=== PATIENT | female | born 1965 | race Caucasian/White ===

== ENCOUNTER 2021-12-08 13:23 | Outpatient (REF) | payer MEDICARE, MEDICAID, SELFPAY ==
--- NOTE | ~2021-12-08 | MR_ITS ---
MRI CERVICAL AND THORACIC SPINE WITH AND WITHOUT IV CONTRAST CLINICAL INFORMATION: Multiple sclerosis. COMPARISON: None TECHNIQUE: Multiplanar multisequence MR imaging of the cervical and thoracic spine obtained before and following the administration of 6 mL of Gadavist intravenous contrast without complication. FINDINGS: CERVICAL SPINE MRI: Accounting for artifact, no definite cervical cord lesions are identified. There are no enhancing cervical cord lesions. Partially imaged intracranial compartment is unremarkable. Cervical alignment is maintained. Vertebral body heights are preserved. There is mild disc volume loss at C4-C5 and C6-C7. Modic type I endplate signal changes at C4-C5 and C6-C7. There is no additional bone marrow edema. There are no acute fractures. The cervical arterial flow voids are maintained. There is a nonspecific enhancing lesion involving the anterior half of the T1 spinous process measuring 1.[address] of this area would be helpful in excluding any suspicious features that may warrant follow-up with a bone scan or PET scan. At C3-C4, an annular disc bulge mildly narrows the central canal and uncovertebral joint spurring and facet arthropathy result in mild bilateral foraminal encroachment. At C4-C5, disc osteophyte and ligamentum flavum thickening result in moderate to severe central canal stenosis and mass effect on the cord. Advanced uncovertebral joint hypertrophy and hypertrophic facet arthropathy result in severe bilateral foraminal stenosis. At C6-C7, a shallow central disc protrusion mildly narrows the central canal. Advanced uncovertebral joint hypertrophy and hypertrophic facet arthropathy result in moderate to severe left and moderate right foraminal stenosis. THORACIC SPINE MRI: There are 12 rib-bearing thoracic type vertebral bodies. Thoracic alignment is maintained. Chronic endplate Schmorl's nodes throughout the thoracic spine. No thoracic cord lesions are appreciated however assessment is limited by artifact. No significant thoracic disc herniations. No severe central canal stenosis and no severe foraminal stenosis within the thoracic spine. No bone marrow edema. No acute fractures. No enhancing thoracic cord lesions. No pathologic intrathecal enhancement. Small round enhancing focus within the T10 vertebral body likely reflects a small hemangioma. MR/MR thoracic spine wo/w con IMPRESSION: - There is a nonspecific enhancing lesion involving the anterior half of the T1 spinous process measuring 1.[address] of this area would be helpful in excluding any suspicious features that may warrant follow-up with a bone scan or PET scan. - No cervical cord lesions. Multilevel cervical spondylosis, greatest at C4-C5 where multifactorial degenerative changes result in moderate to severe central canal stenosis, mass effect on the cervical spinal cord, and severe bilateral foraminal stenosis. At C6-C7, spondylitic changes result in moderate to severe left and moderate right foraminal stenosis. - No thoracic cord lesions.
== END 2021-12-08 13:24 | disposition home or self-care (01) ==
LOC: HO.MRI 13:23
PROVIDERS: PCP Internal Medicine; Visit Provider Psychiatry & Neurology Neurology
DX: G37.9 Demyelinating disease of central nervous system, unspecified (principal)
CPT/HCPCS: 72156; 72157; A9585

== ENCOUNTER 2022-05-11 16:43 | Outpatient (REF) | payer MEDICARE, MEDICAID, SELFPAY ==
--- NOTE | ~2022-05-11 | CT_ITS ---
EXAMINATION: CT THORACIC SPINE WITHOUT CONTRAST CLINICAL INFORMATION: 56-year-old with hereditary and idiopathic neuropathy, unspecified. COMPARISON: 12/08/2021 MRI. TECHNIQUE: Volumetric CT imaging of the thoracic spine was done with multiplanar reformatted reconstructions. This CT examination was performed using dose optimization techniques as appropriate, variously including the following: *Automated exposure control *Adjustment of mA and/or kV according to patient size (this includes techniques or standardized protocols for targeted exams where dose is matched to indication/reason for exam; i.e. extremities or head) *Use of iterative reconstruction technique DLP: 461.00 mGy-cm FINDINGS: The thoracic spine is anatomically aligned. Vertebral body heights are well maintained. No fractures or focally aggressive osseous lesions are identified. Multilevel mild, moderate and [id number] degrees of intervertebral disc space height loss are noted between T2-T3 and T8-T9 inclusive, with multilevel Schmorl's nodes and minor degrees of anterior marginal spondylosis at these levels. Foci of degenerative intradiscal calcification are seen at the levels between T6-T7 and T8-T9 inclusive. Central Schmorl's nodes are also noted between T9-T10 and T12-L1 inclusive. Tiny sclerotic focus in the T2 vertebral body is likely a bone island. Another small sclerotic focus in the T8 vertebral body is also likely a bone island. There are partially imaged discogenic degenerative changes, reactive endplate sclerosis and spondylosis with Schmorl's nodes at C6-C7. See previous MRI of the cervical spine. No significant thoracic disc herniations are identified. There is a small focus of ligamentous calcification involving the posterior longitudinal ligament to the left of midline at T7-T8. No significant thoracic canal stenosis. There is [id number] left-sided facet arthropathy at T2-T3 and mild right-sided facet arthropathy at this level as well without significant neuroforaminal stenosis. Otherwise no significant facet arthropathy or neuroforaminal stenosis seen throughout the remainder of the thoracic spine. The visualized lung parenchyma shows probable fibrotic changes at both lung apices with centrilobular and paraseptal pulmonary emphysematous changes also noted. The paravertebral soft tissues are unremarkable. CT/CT thoracic spine wo IV con IMPRESSION: 1. Multilevel discogenic degenerative changes, as described above. No disc herniations or canal stenosis. 2. Facet arthropathy noted at the T2-T3, left more than right without significant neural foraminal stenosis. 3. Bilateral pulmonary emphysematous changes in the upper lobes and probable fibrotic changes at both lung apices. Correlate with clinical history and consider baseline screening CT of the lungs for further assessment if there is a history of smoking. Fleischner guidelines were followed.
== END 2022-05-11 16:44 | disposition home or self-care (01) ==
LOC: HO.CT 16:43
PROVIDERS: PCP Internal Medicine; Referring Provider Internal Medicine; Visit Provider Psychiatry & Neurology Neurology
DX: G60.9 Hereditary and idiopathic neuropathy, unspecified (principal); G37.9 Demyelinating disease of central nervous system, unspecified
CPT/HCPCS: 72128

== ENCOUNTER 2022-06-07 16:09 | Outpatient (REF) | payer MEDICARE, MEDICAID, SELFPAY ==
--- NOTE | ~2022-06-07 | MR_ITS ---
EXAMINATION: MR LUMBAR SPINE WITHOUT CONTRAST CLINICAL INFORMATION: Low back pain. Leg pain. COMPARISON: None. TECHNIQUE: Multiplanar, multisequence imaging was obtained. FINDINGS: VERTEBRAL BODIES AND PARASPINAL STRUCTURES: The marrow signal is homogeneous. There are small endplate Schmorl's nodes at various levels. No significant disc space narrowing is seen. There are no compression fractures or subluxations. The paraspinal soft tissues are normal. A 2.2 cm right renal cyst is partially visualized, for which no further imaging follow up is indicated. CONUS MEDULLARIS AND CAUDA EQUINE: The distal cord, conus tip, and cauda equina nerve roots are normal. SPINAL LEVELS: L1-L2: No disc pathology. No central canal stenosis or foraminal narrowing. L2-L3: Very mild disc bulge without central canal stenosis or foraminal narrowing. L3-L4: No significant disc pathology. No central canal stenosis or foraminal narrowing. L4-L5: Mild facet arthropathy. No disc abnormality. No central canal stenosis or foraminal narrowing. L5-S1: Uzcv-dc-moozxora facet degeneration. No disc pathology. No central canal stenosis or foraminal encroachment. MR/MR lumbar spine wo con IMPRESSION: Very mild spondylitic changes. Kyfm-vi-olmpgvuv facet arthropathy at the L5-S1 level. No focal disc protrusion, central canal stenosis, or foraminal narrowing.
== END 2022-06-07 16:10 | disposition home or self-care (01) ==
LOC: HO.MRI 16:09
PROVIDERS: Visit Provider Internal Medicine
DX: M54.50 Low back pain, unspecified (principal); G62.9 Polyneuropathy, unspecified
CPT/HCPCS: 72148

== ENCOUNTER 2023-09-03 12:53 | Outpatient (REF) | payer MEDICARE, MEDICAID, SELFPAY ==
[2023-09-03 14:37] LABS: Erythrocyte Sedimentation Rate 6 MM/HR (0-20)
[2023-09-03 14:52] LABS: Anion Gap 10 (12-20); Calcium 9.2 mg/dL (8.4-10.2); Carbon Dioxide 31 mmol/L (22-29); Chloride 104 mmol/L (96-108); Potassium 4.3 mmol/L (3.3-5.1); Sodium 141 mmol/L (135-145)
[2023-09-05 04:33] LABS: Lyme Abs Screen <0.90 index
== END 2023-09-03 12:54 | disposition home or self-care (01) ==
LOC: HO.LAB 12:53
PROVIDERS: PCP Internal Medicine; Visit Provider Psychiatry & Neurology Neurology
DX: R25.2 Cramp and spasm (principal)
CPT/HCPCS: 36415; 80051; 82310; 82550; 83735; 85652; 86617; 86618

== ENCOUNTER 2023-10-01 11:16 | Outpatient (REF) | payer MEDICARE, MEDICAID, SELFPAY ==
--- NOTE | ~2023-10-01 | MR_ITS ---
EXAMINATION: MR BRAIN WITHOUT CONTRAST CLINICAL INFORMATION: Demyelinating disease. COMPARISON: MRI cervical and thoracic spine 12/08/2021. TECHNIQUE: MRI of the brain was obtained using routine sequences without contrast. FINDINGS: There is a small nonspecific focus of T2 FLAIR signal hyperintensity within the left external capsule best visualized on axial image 13 of 24 series 6. Otherwise no supratentorial or infratentorial white matter disease to suggest the presence of underlying demyelinating disease.. There is no intracranial mass effect or midline shift. No abnormal extra-axial collection. Lateral and third ventricles are normal. No hydrocephalus. Midline structures including the cervicomedullary junction are normal. No acute bone marrow signal changes. There is no acute territorial infarct. No pathological magnetic susceptibility artifact. Intracranial vascular flow voids are grossly maintained. There is no mastoid or middle ear effusion. There are a few small retention cysts within the alveolar recess of the right maxillary sinus and trivial mucosal thickening within the ethmoid air cells. Globes and orbits are grossly symmetric. MR/MR head/brain wo con IMPRESSION: There is a small nonspecific focus of signal abnormality within the left external capsule. Otherwise no supratentorial or infratentorial white matter disease to suggest the presence of underlying demyelinating disease.
== END 2023-10-01 11:17 | disposition home or self-care (01) ==
LOC: HO.MRI 11:16
PROVIDERS: PCP Internal Medicine; Visit Provider Psychiatry & Neurology Neurology
DX: G37.9 Demyelinating disease of central nervous system, unspecified (principal)
CPT/HCPCS: 70551

== ENCOUNTER 2023-11-12 16:16 | Outpatient (REF) | payer MEDICARE, MEDICAID, SELFPAY ==
--- NOTE | ~2023-11-12 | MR_ITS ---
EXAMINATION: MR CERVICAL SPINE WITHOUT CONTRAST CLINICAL INFORMATION: Cervical myelopathy. History of demyelinating disease. COMPARISON: Cervical spine MRI from 12/08/2021. TECHNIQUE: MRI of the cervical spine was obtained using routine sequences without contrast. FINDINGS: Mild degenerative retrolisthesis of C4 on C5. Mild degenerative anterolisthesis of T2 on T3. Otherwise, normal anatomic alignment. Advanced degenerative disc disease at C4-C5 and C6-C7. Mild to moderate degenerative disc disease at all additional levels. Associated mixed Modic type discogenic and plate changes including mild Modic type I discogenic edema at C4-C5 and C6-C7. Mild marrow edema within the posterior elements of C3-C7 consistent with degenerative stress reaction. Similar prior exam, there is a T2 hyperintense lesion within the T1 spinous process. No additional suspicious marrow edema. The vertebral body heights are well-maintained. No demonstrated spinal cord signal abnormalities. Mildly prominent level IIa lymph nodes measure up to 1.7 cm and level III lymph nodes measure up to 1.1 cm bilaterally, similar to 2021. Otherwise, limited evaluation of the soft tissues of the neck without demonstrated abnormalities. The flow voids of the major cervical vessels are maintained. Normal appearance of the cervicomedullary junction and visualized posterior fossa. SPINAL LEVELS: C2-C3: Mild disc-osteophyte complex. There is mild right and no left uncovertebral joint arthropathy. There is moderate right and mild left facet joint arthropathy. There is mild right and no left neural foraminal stenosis. There is no spinal canal stenosis. C3-C4: Moderate disc-osteophyte complex. There is moderate right and mild left uncovertebral joint arthropathy. There is moderate bilateral facet joint arthropathy. There is mild bilateral neural foraminal stenosis. There is mild spinal canal stenosis. C4-C5: Moderate disc-osteophyte complex. There is severe bilateral uncovertebral joint arthropathy. There is moderate bilateral facet joint arthropathy. There is severe bilateral neural foraminal stenosis. There is moderate spinal canal stenosis. C5-C6: Mild disc-osteophyte complex. There is moderate left and mild right uncovertebral joint arthropathy. There is moderate left worse than right facet joint arthropathy. There is moderate left and no right neural foraminal stenosis. There is mild spinal canal stenosis. C6-C7: Moderate disc-osteophyte complex. There is moderate bilateral uncovertebral joint arthropathy. There is moderate bilateral facet joint arthropathy. There is moderate left worse than right neural foraminal stenosis. There is minimal narrowing of the spinal canal. C7-T1: Mild disc-osteophyte complex. There is no uncovertebral joint arthropathy. There is mild bilateral facet joint arthropathy. There is no neural foraminal stenosis. There is no spinal canal stenosis. MR/MR cervical spine wo con IMPRESSION: Moderate to advanced multilevel degenerative spondyloarthropathy of the cervical spine as described in detail above. Most notably, there is moderate spinal canal stenosis at C4-C5. Mild spinal canal stenoses at C3-C4 and C5-C6. Moderate to severe neural foraminal stenoses from C4-C7. Overall, degenerative changes are similar to prior exam. No overt spinal cord signal abnormalities. Stable appearance of a nonspecific T2 hyperintensity within the spinous process of T1. Mildly prominent cervical chain lymph nodes, similar to 2021.
[2023-11-12 18:08] LABS: Anion Gap 10 (12-20); Blood Urea Nitrogen 8 mg/dL (9-16); Calcium 9.1 mg/dL (8.4-10.2); Carbon Dioxide 30 mmol/L (22-29); Chloride 104 mmol/L (96-108); Estimated Glomerular Filt Rate > 60; Glucose Random 75 mg/dL (60-115); Sodium 140 mmol/L (135-145)
[2023-11-12 18:26] LABS: T4 Thyroxine 8.9 ug/dL (4.5-12.0)
[2023-11-12 18:48] LABS: Folate 5.4 ng/mL (> or = 4.0); Vitamin B12 292 pg/mL (200-900)
== END 2023-11-12 16:17 | disposition home or self-care (01) ==
LOC: HO.MRI 16:16
PROVIDERS: PCP Internal Medicine; Visit Provider Psychiatry & Neurology Neurology
DX: G95.9 Disease of spinal cord, unspecified (principal)
CPT/HCPCS: 36415; 72141; 80048; 82607; 82746; 84436; 84443